=== PATIENT | male | born 1940 | race Caucasian/White ===

== ENCOUNTER 2023-01-20 07:15 | Inpatient (IN) | payer MEDICARE, OTHER ==
[~2023-01-20] VITALS: Ht 180.3 cm; Wt 128.7 kg
[2023-01-20 07:51] LABS: Basophils # (auto) 0 10 ^3/uL (0-0.2); Eosinophils # (auto) 0.1 10 ^3/uL (0-0.8); Eosinophils % (auto) 2.3 % (0.0-7.0); Hematocrit 41.2 % (41.0-53.0); Lymphocytes # (auto) 2.4 10 ^3/uL (0.4-5.4); Lymphocytes % (auto) 46.1 % (10.0-50.0); Mean Corpuscular Hgb Conc. 34.1 g/dL (32.0-36.0); Mean Corpuscular Volume 93.9 fL (80.0-100.0); Monocytes # (auto) 0.4 10 ^3/uL (0-1.3); Monocytes % (auto) 7.4 % (0.0-12.0); Neutrophils # (auto) 2.2 10 ^3/uL (1.6-8.6); Neutrophils % (auto) 43.2 % (37.0-80.0); Red Blood Cells 4.38 10^6/uL (4.5-5.90); White Blood Cell 5.1 10^3/uL (4.4-10.8)
[2023-01-20 08:18] LABS: Albumin 3.7 g/dL (3.4-5.0); Calcium 8.4 mg/dL (8.5-10.1); Potassium 4.2 mmol/L (3.5-5.1)
[2023-01-20 08:22] LABS: BUN/Creatinine Ratio 14.4 (10.0-20.0)
[2023-01-20 08:23] LABS: Bilirubin, Total 0.6 mg/dL (0.2-1.0); Total Protein 6.5 g/dL (6.4-8.2)
[2023-01-20 08:45] LABS: Urine Bacteria NONE SEEN /hpf (None Seen); Urine Blood Negative /uL (Negative); Urine Specific Gravity 1.011 (1.001-1.035); Urine WBC <1 /hpf (0 - 3)
[2023-01-20] MEDS ORDERED: MORPHINE SULFATE INJ 2 MG/ml SYRG IV PRN (10:45)
[2023-01-20] MEDS ORDERED: ONDANSETRON HCL 4 MG/2 ML VIAL IV PRN (10:45)
[2023-01-20] MEDS ORDERED: LACTULOSE 20Gm/30ML SOLN PO ONE (10:45)
[2023-01-20] MEDS ORDERED: DEXTROSE (50%) 50ML SYRG IV PRN (10:45)
[2023-01-20] MEDS: InsuLIN REG 1unit/0.01ml Soln (100units/ml) SC SCH ×3 (11:30→22:00)
[2023-01-20] MEDS: ACCU-CHEK COMFORT CURVE STRIP VI SCH ×3 (11:59→22:25)
[2023-01-21 05:56] LABS: Albumin 3.4 g/dL (3.4-5.0); Calcium 8.7 mg/dL (8.5-10.1); Potassium 3.6 mmol/L (3.5-5.1)
[2023-01-21 05:58] LABS: Basophils # (auto) 0 10 ^3/uL (0-0.2); Basophils % (auto) 0.9 % (0.0-2.0); Eosinophils # (auto) 0.1 10 ^3/uL (0-0.8); Eosinophils % (auto) 2.1 % (0.0-7.0); Hematocrit 38.1 % (41.0-53.0); Hemoglobin 13.1 g/dL (13.5-17.5); Lymphocytes # (auto) 1.7 10 ^3/uL (0.4-5.4); Lymphocytes % (auto) 38.6 % (10.0-50.0); Mean Corpuscular Hemoglobin 32.1 pg (28.0-32.0); Mean Corpuscular Hgb Conc. 34.5 g/dL (32.0-36.0); Mean Corpuscular Volume 93.2 fL (80.0-100.0); Monocytes # (auto) 0.4 10 ^3/uL (0-1.3); Monocytes % (auto) 8.8 % (0.0-12.0); Neutrophils # (auto) 2.2 10 ^3/uL (1.6-8.6); Neutrophils % (auto) 49.6 % (37.0-80.0); Nucleated Red Blood Cells % 0.2 %; Red Blood Cells 4.08 10^6/uL (4.5-5.90); Red Cell Distribution Width 15.2 % (11.8-14.3); White Blood Cell 4.4 10^3/uL (4.4-10.8)
[2023-01-21 06:00] LABS: BUN/Creatinine Ratio 17.4 (10.0-20.0); Bilirubin, Total 0.6 mg/dL (0.2-1.0); Total Protein 6.2 g/dL (6.4-8.2)
[2023-01-21] MEDS: InsuLIN REG 1unit/0.01ml Soln (100units/ml) SC SCH ×4 (07:00→21:40)
[2023-01-21] MEDS: ACCU-CHEK COMFORT CURVE STRIP VI SCH ×4 (07:00→21:40)
[2023-01-21 10:42] LABS: Urine Bacteria FEW /hpf (None Seen); Urine Blood Negative /uL (Negative); Urine Hyaline Cast FEW /lpf (0 - 2); Urine Mucus FEW (None Seen); Urine Specific Gravity 1.024 (1.001-1.035); Urine WBC 1 /hpf (0 - 3)
[2023-01-21] MEDS: POLYETHYLENE GLYCOL 17 GM PWDR PO SCH (10:47)
[2023-01-21 13:32] VITALS: BP 125/74
[2023-01-21] MEDS ORDERED: LOSA100T58 PO (15:00)
[2023-01-21] MEDS ORDERED: LORA-483 PO (15:02)
[2023-01-21] MEDS ORDERED: SITA100T7 PO (15:02)
[2023-01-21] MEDS ORDERED: ATOR20TA50 PO (15:02)
[2023-01-21] MEDS ORDERED: DOCU-265 PO (15:02)
[2023-01-21] MEDS ORDERED: FENO145T27 PO (15:02)
[2023-01-21] MEDS ORDERED: SENN-105 PO (15:02)
[2023-01-21] MEDS ORDERED: METO-289 PO (15:02)
[2023-01-21] MEDS ORDERED: RIV20T PO (15:02)
[2023-01-21] MEDS ORDERED: PIOG1TAB37 PO (15:02)
[2023-01-21] MEDS ORDERED: LEVO75TA6 PO (15:02)
[2023-01-21 17:00] VITALS: BP 140/59
[2023-01-21 21:59] VITALS: BP 120/51
[2023-01-22 01:26] VITALS: BP 120/51
[2023-01-22 05:00] VITALS: BP 121/51
[2023-01-22] MEDS: ACCU-CHEK COMFORT CURVE STRIP VI SCH ×4 (06:20→22:00)
[2023-01-22] MEDS: InsuLIN REG 1unit/0.01ml Soln (100units/ml) SC SCH ×4 (06:21→22:00)
[2023-01-22 07:26] LABS: Basophils # (auto) 0 10 ^3/uL (0-0.2); Basophils % (auto) 0.6 % (0.0-2.0); Eosinophils # (auto) 0.1 10 ^3/uL (0-0.8); Eosinophils % (auto) 3.2 % (0.0-7.0); Hematocrit 37.4 % (41.0-53.0); Hemoglobin 12.8 g/dL (13.5-17.5); Lymphocytes # (auto) 1.8 10 ^3/uL (0.4-5.4); Mean Corpuscular Hemoglobin 32.1 pg (28.0-32.0); Mean Corpuscular Hgb Conc. 34.4 g/dL (32.0-36.0); Mean Corpuscular Volume 93.3 fL (80.0-100.0); Monocytes # (auto) 0.4 10 ^3/uL (0-1.3); Monocytes % (auto) 7.9 % (0.0-12.0); Neutrophils # (auto) 2.3 10 ^3/uL (1.6-8.6); Neutrophils % (auto) 50.3 % (37.0-80.0); Nucleated Red Blood Cells % 0.1 %; White Blood Cell 4.6 10^3/uL (4.4-10.8)
[2023-01-22 07:35] LABS: Albumin 2.9 g/dL (3.4-5.0); Calcium 8.3 mg/dL (8.5-10.1); Potassium 3.8 mmol/L (3.5-5.1)
[2023-01-22 07:38] LABS: BUN/Creatinine Ratio 19.1 (10.0-20.0)
[2023-01-22 07:40] LABS: Bilirubin, Total 0.5 mg/dL (0.2-1.0); Total Protein 5.9 g/dL (6.4-8.2)
[2023-01-22 09:18] VITALS: BP 143/77
[2023-01-22] MEDS: POLYETHYLENE GLYCOL 17 GM PWDR PO SCH (10:00)
[2023-01-22] MEDS ORDERED: ERGOCALCIFEROL 50,000 UNIT(1.25MG) CAP PO SCH (12:45)
[2023-01-22 13:22] VITALS: BP 127/69
[2023-01-22 17:00] VITALS: BP 135/73
[2023-01-22 22:00] VITALS: BP 155/62
[2023-01-23 05:00] VITALS: BP 119/56
[2023-01-23] MEDS: InsuLIN REG 1unit/0.01ml Soln (100units/ml) SC SCH ×3 (08:36→17:00)
[2023-01-23] MEDS: ACCU-CHEK COMFORT CURVE STRIP VI SCH ×3 (08:36→17:00)
[2023-01-23 09:00] VITALS: BP 133/61
[2023-01-23] MEDS: POLYETHYLENE GLYCOL 17 GM PWDR PO SCH (10:36)
[2023-01-23 13:00] VITALS: BP 136/69
[2023-01-23] MEDS ORDERED: ERGO1CAP23 PO (15:30)
[2023-01-23 16:24] VITALS: BP 136/69
[2023-01-23 17:33] VITALS: BP 151/80
== END 2023-01-23 17:40 | disposition home or self-care (01) | DRG 542 ==
LOC: ER 07:15 → OVERFLOW 11:00 → WEST WING 01-21 12:55
PROVIDERS: ADMIT Nurse Practitioner Family; ATTEND Internal Medicine
PROC: 5A09357 Assistance with Respiratory Ventilation, Less than 24 Consecutive Hours, Continuous Positive Airway Pressure (ICD-10-PCS; principal; 2023-01-22)
DX: M48.56XA Collapsed vertebra, not elsewhere classified, lumbar region, initial encounter for fracture (principal); I50.31 Acute diastolic (congestive) heart failure; E44.0 Moderate protein-calorie malnutrition; K59.00 Constipation, unspecified; E11.65 Type 2 diabetes mellitus with hyperglycemia; E55.9 Vitamin D deficiency, unspecified; W01.0XXA Fall on same level from slipping, tripping and stumbling without subsequent striking against object, initial encounter; I11.0 Hypertensive heart disease with heart failure; Z85.46 Personal history of malignant neoplasm of prostate; Z68.39 Body mass index [BMI] 39.0-39.9, adult; E66.01 Morbid (severe) obesity due to excess calories
CPT/HCPCS: 36415; 71250; 74176; 80053; 81001; 82306; 82962; 83036; 83735; 83880; 84443; 84484; 85025; 93306; 94660; 96374; 97110; 97116; 97163; 97530; G0378; J2405

== ENCOUNTER 2024-01-17 07:53 | Inpatient (IN) | payer MEDICARE, OTHER ==
[~2024-01-17] VITALS: Ht 180.3 cm; Wt 112.4 kg
[~2024-01-17 07:53] MED LIST: ATOR20TA50 PO; DOCU-265 PO; ERGO1CAP23 PO; FENO145T27 PO; LEVO75TA6 PO; LORA-483 PO; LOSA-535 PO; METO-289 PO; PIOG1TAB37 PO; RIV20T PO; SENN-105 PO; SITA100T7 PO
[2024-01-17 08:15] VITALS: PULSE 71; RESP 20; O2SAT 96
[2024-01-17] MEDS: ONDANSETRON HCL 4 MG/2 ML VIAL IV ONE (08:31)
[2024-01-17] MEDS: HYDROCORTISONE SOD SUCC 100 MG/2ML INJ VIAL IV ONE (08:31)
[2024-01-17] MEDS: MORPHINE SULFATE 4 MG/ML SYR/VIAL IV ONE (08:32)
[2024-01-17] MEDS: FUROSEMIDE 20 MG/2 ML VIAL IV ONE (08:32)
[2024-01-17] MEDS: ASPirin 81 mg TAB PO ONE (08:33)
[2024-01-17] MEDS: NITROGLYCERIN 0.2MG/HR TOPICAL PATCH TD ONE (08:33)
[2024-01-17] MEDS: MAGNESIUM SULFATE 1GM/100ML 100 ML IV SCH (08:33)
[2024-01-17] MEDS: ALBUTEROL SULF 2.5 MG/0.5ML(0.5%) NEB SOLN NEB ONE (08:47)
[2024-01-17 09:00] VITALS: BP 133/73; PULSE 70; RESP 25; TEMP 97.7; O2SAT 96
[2024-01-17 09:04] VITALS: BP 133/73; PULSE 69; O2SAT 97
[2024-01-17 09:07] LABS: Basophils # (auto) 0.1 10 ^3/uL (0-0.2); Basophils % (auto) 1.1 % (0.0-2.0); Eosinophils # (auto) 0.9 10 ^3/uL (0-0.8); Eosinophils % (auto) 13.6 % (0.0-7.0); Hemoglobin 13.5 g/dL (13.5-17.5); Lymphocytes # (auto) 2.1 10 ^3/uL (0.4-5.4); Lymphocytes % (auto) 30.8 % (10.0-50.0); Mean Corpuscular Hemoglobin 32.2 pg (28.0-32.0); Mean Corpuscular Hgb Conc. 33.9 g/dL (32.0-36.0); Mean Corpuscular Volume 95.2 fL (80.0-100.0); Monocytes # (auto) 0.5 10 ^3/uL (0-1.3); Monocytes % (auto) 7.1 % (0.0-12.0); Neutrophils # (auto) 3.2 10 ^3/uL (1.6-8.6); Neutrophils % (auto) 47.4 % (37.0-80.0); Nucleated Red Blood Cells % 0.1 %; White Blood Cell 6.7 10^3/uL (4.4-10.8)
[2024-01-17 09:21] LABS: INR 1.26 (0.9-1.15); Prothrombin Time 13.1 sec (9.3-11.8)
[2024-01-17 09:28] LABS: Alanine Aminotransferase 25 U/L (7-40); Albumin 4.1 g/dL (3.2-4.8); Alkaline Phosphatase 54 U/L (46-116); Anion Gap 5 (5-15); Aspartate Aminotransferase 34 U/L (13-40); BUN/Creatinine Ratio 25.2 (10.0-20.0); Blood Urea Nitrogen 33 mg/dL (9-23); Calcium 9.6 mg/dL (8.5-10.1); Carbon Dioxide 33 mmol/L (20-30); Chloride 104 mmol/L (98-107); Glucose 103 mg/dL (74-106); Magnesium 1.9 mg/dL (1.6-2.6); Potassium 3.8 mmol/L (3.5-5.1); Sodium 142 mmol/L (136-145)
[2024-01-17 09:29] LABS: Bilirubin, Total 0.4 mg/dL (0.2-1.0); Total Protein 6.7 g/dL (5.7-8.2)
[2024-01-17 10:43] VITALS: BP 133/73; PULSE 95; O2SAT 94
[2024-01-17 10:57] LABS: Base Excess 2.5 mmol/L (-2.0-2.0)
[2024-01-17] MEDS ORDERED: ONDANSETRON HCL 4 MG/2 ML VIAL IV PRN (11:15)
[2024-01-17] MEDS ORDERED: MORPHINE SULFATE INJ 2 MG/ml SYRG IV PRN ×2 (11:15→12:45)
[2024-01-17] MEDS ORDERED: NITROGLYCERIN 0.4 MG SL TAB SL PRN (12:45)
[2024-01-17 19:30] VITALS: PULSE 75; RESP 18; O2SAT 93
[2024-01-17 20:07] LABS: Body Fluid Red Blood Cells 40750 CUMM (0-2000); Body Fluid White Blood Cells 900 CUMM (0-200)
[2024-01-17 20:08] LABS: Body Fluid Polymorphonuclear 60 % (0-25)
[2024-01-17] MEDS: SODIUM CHLORIDE 0.9% 500 ML IV ONE (22:27)
[2024-01-17] MEDS: MIDODRINE HCL 10 MG TAB PO ONE (23:30)
[2024-01-18] VITALS (8 sets, daily range): BP systolic 102–116; BP diastolic 53–60; PULSE 62–72; RESP 17–20; TEMP 97.4–98.1; O2SAT 4–97
[2024-01-18] MEDS: MIDODRINE HCL 10 MG TAB PO SCH (05:13)
[2024-01-18] MEDS ORDERED: FURO40TA4 PO (06:07)
[2024-01-18] MEDS ORDERED: POTA-36 PO (06:07)
[2024-01-18 07:27] LABS: Basophils # (auto) 0 10 ^3/uL (0-0.2); Basophils % (auto) 0.8 % (0.0-2.0); Eosinophils # (auto) 0.5 10 ^3/uL (0-0.8); Eosinophils % (auto) 7.3 % (0.0-7.0); Hemoglobin 11.8 g/dL (13.5-17.5); Lymphocytes # (auto) 1.5 10 ^3/uL (0.4-5.4); Lymphocytes % (auto) 24.1 % (10.0-50.0); Mean Corpuscular Hemoglobin 32.3 pg (28.0-32.0); Mean Corpuscular Hgb Conc. 33.7 g/dL (32.0-36.0); Monocytes # (auto) 0.5 10 ^3/uL (0-1.3); Neutrophils # (auto) 3.7 10 ^3/uL (1.6-8.6); Neutrophils % (auto) 59.8 % (37.0-80.0); Red Blood Cells 3.64 10^6/uL (4.5-5.90); Red Cell Distribution Width 14.4 % (11.8-14.3); White Blood Cell 6.1 10^3/uL (4.4-10.8)
[2024-01-18 07:38] LABS: Alanine Aminotransferase 20 U/L (7-40); Albumin 3.3 g/dL (3.2-4.8); Alkaline Phosphatase 42 U/L (46-116); Anion Gap 4 (5-15); Aspartate Aminotransferase 30 U/L (13-40); Blood Urea Nitrogen 33 mg/dL (9-23); Calcium 8.8 mg/dL (8.5-10.1); Carbon Dioxide 33 mmol/L (20-30); Chloride 104 mmol/L (98-107); Glucose 83 mg/dL (74-106); Potassium 3.8 mmol/L (3.5-5.1); Sodium 141 mmol/L (136-145)
[2024-01-18 07:39] LABS: Bilirubin, Total 0.3 mg/dL (0.2-1.0); Total Protein 5.5 g/dL (5.7-8.2)
[2024-01-18] MEDS: Fenofibrate 145 MG TAB PO SCH (10:00)
[2024-01-18] MEDS: METOPROLOL SUCCINATE XL 50 MG TAB PO SCH (10:00)
[2024-01-18] MEDS: LOSARTAN POTASSIUM 50 MG TAB PO SCH (10:00)
[2024-01-18] MEDS: Sitagliptin Phosphate (Januvia) 100 MG TAB PO SCH (10:00)
[2024-01-18] MEDS: ATORVASTATIN 20 MG TAB PO SCH (10:53)
[2024-01-18] MEDS: LEVOTHYROXINE SODIUM 25 MCG TAB PO SCH (10:53)
[2024-01-18] MEDS: PIOGLITAZONE HYDROCHLORIDE 30 MG TAB PO SCH (11:01)
[2024-01-19] VITALS (8 sets, daily range): BP systolic 100–127; BP diastolic 51–71; PULSE 62–84; RESP 18–22; TEMP 97.8–98.7; O2SAT 94–97
[2024-01-19] MEDS: DOCUSATE SOD 100 MG CAP PO PRN (06:34)
[2024-01-19 08:07] LABS: Protein, Body Fluid 4.7 g/dL (.)
[2024-01-20] VITALS (10 sets, daily range): BP systolic 100–111; BP diastolic 51–62; PULSE 51–77; RESP 17–22; TEMP 97.6–98.4; O2SAT 92–100
[2024-01-21] VITALS (13 sets, daily range): BP systolic 102–132; BP diastolic 45–70; PULSE 60–85; RESP 18–22; TEMP 97.9–98.7; O2SAT 94–100
[2024-01-21] MEDS: ALBUTEROL SULF 2.5 MG/0.5ML(0.5%) NEB SOLN NEB PRN (03:14)
[2024-01-21 22:53] LABS: Urine Bacteria FEW /hpf (None Seen); Urine Blood Negative /uL (Negative); Urine Clarity Clear (Clear); Urine Color Yellow (Yellow); Urine Mucus FEW (None Seen); Urine Protein, UAD TRACE (Negative); Urine Specific Gravity 1.022 (1.001-1.035); Urine Urobilinogen Normal (Negative); Urine WBC 1 /hpf (0 - 3); Urine pH 5.5 (5.0-9.0)
[2024-01-22] VITALS (12 sets, daily range): BP systolic 99–134; BP diastolic 48–65; PULSE 70–87; RESP 16–99; TEMP 98.1–98.7; O2SAT 93–100
[2024-01-22] MEDS: ALBUTEROL SULF 2.5 MG/0.5ML(0.5%) NEB SOLN ONE (02:34)
[2024-01-22 06:00] LABS: Alanine Aminotransferase 24 U/L (7-40); Albumin 3.5 g/dL (3.2-4.8); Alkaline Phosphatase 53 U/L (46-116); Anion Gap 4 (5-15); Aspartate Aminotransferase 40 U/L (13-40); BUN/Creatinine Ratio 16.5 (10.0-20.0); Bilirubin, Total 0.4 mg/dL (0.2-1.0); Blood Urea Nitrogen 13 mg/dL (9-23); Calcium 9.4 mg/dL (8.5-10.1); Carbon Dioxide 31 mmol/L (20-30); Chloride 104 mmol/L (98-107); Glucose 97 mg/dL (74-106); Potassium 4.4 mmol/L (3.5-5.1); Sodium 139 mmol/L (136-145); Total Protein 5.8 g/dL (5.7-8.2)
[2024-01-22 06:12] LABS: INR 1.14 (0.9-1.15); Partial Thromboplastin Time 24.2 SEC (24.5-34.5)
[2024-01-22 06:20] LABS: Basophils # (auto) 0.1 10 ^3/uL (0-0.2); Basophils % (auto) 1.2 % (0.0-2.0); Eosinophils # (auto) 0.6 10 ^3/uL (0-0.8); Eosinophils % (auto) 10.5 % (0.0-7.0); Hematocrit 37.4 % (41.0-53.0); Hemoglobin 12.6 g/dL (13.5-17.5); Lymphocytes # (auto) 1.5 10 ^3/uL (0.4-5.4); Mean Corpuscular Hemoglobin 32.3 pg (28.0-32.0); Mean Corpuscular Hgb Conc. 33.6 g/dL (32.0-36.0); Mean Corpuscular Volume 96.2 fL (80.0-100.0); Monocytes # (auto) 0.5 10 ^3/uL (0-1.3); Monocytes % (auto) 8.9 % (0.0-12.0); Neutrophils % (auto) 53.4 % (37.0-80.0); Nucleated Red Blood Cells % 0.1 %; Red Blood Cells 3.89 10^6/uL (4.5-5.90); Red Cell Distribution Width 14.8 % (11.8-14.3); White Blood Cell 5.7 10^3/uL (4.4-10.8)
[2024-01-23] VITALS (8 sets, daily range): BP systolic 101–112; BP diastolic 56–103; PULSE 65–89; RESP 18; TEMP 97.6–98.8; O2SAT 93–97
== END 2024-01-23 19:05 | disposition home health service (06) | DRG 180 ==
LOC: EDUNIT# 07:53 → ER 07:53 → EDBD 07:53 → TELE 12:37 → TELE-WESTW 23:36
PROVIDERS: ADMIT Nurse Practitioner Family; ATTEND Family Medicine
PROC: 5A09357 Assistance with Respiratory Ventilation, Less than 24 Consecutive Hours, Continuous Positive Airway Pressure (ICD-10-PCS; principal; 2024-01-17)
PROC: 0W993ZZ Drainage of Right Pleural Cavity, Percutaneous Approach (ICD-10-PCS; 2024-01-17)
PROC: 0W993ZZ Drainage of Right Pleural Cavity, Percutaneous Approach (ICD-10-PCS; 2024-01-22)
DX: C34.91 Malignant neoplasm of unspecified part of right bronchus or lung (principal); I50.31 Acute diastolic (congestive) heart failure; J96.01 Acute respiratory failure with hypoxia; E44.0 Moderate protein-calorie malnutrition; J44.1 Chronic obstructive pulmonary disease with (acute) exacerbation; J96.12 Chronic respiratory failure with hypercapnia; J91.0 Malignant pleural effusion; J91.8 Pleural effusion in other conditions classified elsewhere; I11.0 Hypertensive heart disease with heart failure; Z66 Do not resuscitate; E78.00 Pure hypercholesterolemia, unspecified; E11.9 Type 2 diabetes mellitus without complications; E03.9 Hypothyroidism, unspecified; E66.9 Obesity, unspecified; G47.33 Obstructive sleep apnea (adult) (pediatric); Z68.35 Body mass index [BMI] 35.0-35.9, adult; Z87.891 Personal history of nicotine dependence; Z80.3 Family history of malignant neoplasm of breast; Z79.4 Long term (current) use of insulin
CPT/HCPCS: 36415; 36600; 71045; 71250; 76000; 76604; 76942; 80053; 81001; 82805; 82962; 83735; 83880; 83986; 84484; 85025; 85610; 85730; 86850; 86900; 86901; 87070; 87205; 89051; 93005; 94640; 94660; 96365; 96375; G0378; J2405

== ENCOUNTER 2024-04-10 09:48 | Inpatient (IN) | payer OTHER ==
[~2024-04-10] VITALS: Ht 180.3 cm; Wt 120.0 kg
[~2024-04-10 09:48] MED LIST changes: -DOCU-265 PO; +FURO40TA4 PO; +POTA-36 PO; -SENN-105 PO
[2024-04-10 10:41] VITALS: PULSE 78; RESP 22; O2SAT 96
[2024-04-10 13:45] LABS: Basophils # (auto) 0 10 ^3/uL (0-0.2); Basophils % (auto) 0.5 % (0.0-2.0); Eosinophils # (auto) 0.1 10 ^3/uL (0-0.8); Eosinophils % (auto) 1.4 % (0.0-7.0); Hematocrit 35.1 % (41.0-53.0); Hemoglobin 11.9 g/dL (13.5-17.5); Lymphocytes # (auto) 1.7 10 ^3/uL (0.4-5.4); Lymphocytes % (auto) 45.7 % (10.0-50.0); Mean Corpuscular Hemoglobin 31.7 pg (28.0-32.0); Mean Corpuscular Hgb Conc. 33.8 g/dL (32.0-36.0); Mean Corpuscular Volume 93.7 fL (80.0-100.0); Monocytes # (auto) 0.4 10 ^3/uL (0-1.3); Monocytes % (auto) 11.3 % (0.0-12.0); Neutrophils # (auto) 1.5 10 ^3/uL (1.6-8.6); Neutrophils % (auto) 41.1 % (37.0-80.0); Nucleated Red Blood Cells % 0.2 %; Platelet Count (auto) 147 10^3/uL (140-450); Red Blood Cells 3.75 10^6/uL (4.5-5.90); Red Cell Distribution Width 17.6 % (11.8-14.3); White Blood Cell 3.7 10^3/uL (4.4-10.8)
[2024-04-10] MEDS ORDERED: DEXTROSE (50%) 50ML SYRG IV PRN (13:45)
[2024-04-10] MEDS ORDERED: POTA-228 PO (13:50)
[2024-04-10] MEDS ORDERED: ATOR40TA52 PO (13:50)
[2024-04-10 14:10] LABS: Alanine Aminotransferase 27 U/L (7-40); Albumin 3.6 g/dL (3.2-4.8); Alkaline Phosphatase 49 U/L (46-116); Anion Gap 4 (5-15); Aspartate Aminotransferase 48 U/L (13-40); BUN/Creatinine Ratio 18.6 (10.0-20.0); Blood Urea Nitrogen 21 mg/dL (9-23); Carbon Dioxide 29 mmol/L (20-30); Chloride 109 mmol/L (98-107); Glucose 103 mg/dL (74-106); Potassium 4.2 mmol/L (3.5-5.1); Sodium 142 mmol/L (136-145)
[2024-04-10 14:11] LABS: Bilirubin, Total 0.5 mg/dL (0.2-1.0); Total Protein 6.1 g/dL (5.7-8.2)
[2024-04-10] MEDS: LIDOCAINE 2%HCL (LOCAL ANESTH.) INJ 10ml MDV ONE (15:26)
[2024-04-10 15:35] LABS: INR 1.31 (0.9-1.15); Prothrombin Time 13.6 sec (9.3-11.8)
[2024-04-10] MEDS ORDERED: InsuLIN REG 1unit/0.01ml Soln (100units/ml) SC SCH (17:00)
[2024-04-10] MEDS ORDERED: ACCU-CHEK COMFORT CURVE STRIP VI SCH (17:00)
[2024-04-10 17:03] VITALS: BP 115/82; PULSE 87; RESP 16; TEMP 98.2; O2SAT 97
[2024-04-11] MEDS ORDERED: METOPROLOL SUCCINATE XL 50 MG TAB PO SCH (10:00)
[2024-04-11] MEDS ORDERED: POTASSIUM CHL 10 Meq TABLET PO SCH (10:00)
[2024-04-11] MEDS ORDERED: FUROSEMIDE 40 MG TAB PO SCH (10:00)
[2024-04-11] MEDS ORDERED: LOSARTAN POTASSIUM 50 MG TAB PO SCH (10:00)
== END 2024-04-10 17:15 | disposition home or self-care (01) | DRG 920 ==
LOC: ER 09:48 → OVERFLOW 13:06
PROVIDERS: ADMIT Registered Nurse General Practice; ATTEND Registered Nurse General Practice
PROC: 0WP9X0Z Removal of Drainage Device from Right Pleural Cavity, External Approach (ICD-10-PCS; principal; 2024-04-10)
DX: T85.628A Displacement of other specified internal prosthetic devices, implants and grafts, initial encounter (principal); C34.91 Malignant neoplasm of unspecified part of right bronchus or lung; J90 Pleural effusion, not elsewhere classified; J96.11 Chronic respiratory failure with hypoxia; Y92.89 Other specified places as the place of occurrence of the external cause; E11.9 Type 2 diabetes mellitus without complications; F17.210 Nicotine dependence, cigarettes, uncomplicated; Y83.8 Other surgical procedures as the cause of abnormal reaction of the patient, or of later complication, without mention of misadventure at the time of the procedure; E78.5 Hyperlipidemia, unspecified; Z66 Do not resuscitate
CPT/HCPCS: 36415; 71045; 71250; 76604; 76705; 80053; 85025; 85610; G0378; J2001